=== PATIENT | female | born 1975 | race Caucasian/White ===

== ENCOUNTER 2022-04-18 08:46 | Outpatient (CLI) | payer OTHER, SELFPAY ==
[2022-04-18 09:52] LABS: Cholesterol* 180 mg/dL (90-199)
[2022-04-18 09:53] LABS: Glucose* 102 mg/dL (60-115); HDL Cholesterol* 67 mg/dL (>=50); LDL Cholesterol Calculated 94 mg/dL (<100); Triglycerides* 93 mg/dL (40-149)
[2022-04-18 10:21] LABS: Vitamin D 25 Hydroxy* 58 ng/mL (30-80)
== END 2022-04-18 08:47 | disposition home or self-care (01) ==
LOC: NFLDREF 08:46
PROVIDERS: PCP Family Medicine; Visit Provider Obstetrics & Gynecology
DX: Z01.419 Encounter for gynecological examination (general) (routine) without abnormal findings (principal); Z13.6 Encounter for screening for cardiovascular disorders; Z13.1 Encounter for screening for diabetes mellitus; Z13.29 Encounter for screening for other suspected endocrine disorder
CPT/HCPCS: 80061; 82306; 82947; 84443

== ENCOUNTER 2022-05-06 13:08 | Outpatient (CLI) | payer OTHER, SELFPAY ==
--- NOTE | 2022-05-06 13:20 | CRLHL7_ITS ---
For Patients: As a result of the Century Cures Act, medical imaging exams and procedure reports are released immediately into your electronic medical record. You may view this report before your referring provider. If you have questions, please contact your health care provider. BILATERAL SCREENING MAMMOGRAM WITH COMPUTER-AIDED DETECTION TECHNIQUE: CC and MLO views were obtained. These mammographic images have been obtained using full-field digital technique. These mammographic images were interpreted with the benefit of computer-aided detection. COMPARISON FILM: 02/01/20, 05/07/16. FINDINGS: There are scattered areas of fibroglandular density IMPRESSION: There is no radiographic evidence for malignancy. ASSESSMENT: BI-RADS Category 1: Negative RECOMMENDATION: Routine screening mammogram in 1 year. A lay language report of this examination will be provided to the patient. Erwin Brothers M.D. Diagnostic Radiologist [email or web address] JACKELYN/Dictated by: Erwin Brothers MD @ 05/15/2022 11:23:00 AM (Electronically Signed)
== END 2022-05-06 13:09 | disposition home or self-care (01) ==
LOC: MAMMO 13:09
PROVIDERS: PCP Family Medicine; Visit Provider Family Medicine
DX: Z12.31 Encounter for screening mammogram for malignant neoplasm of breast (principal)
CPT/HCPCS: 77063; 77067

== ENCOUNTER 2023-05-12 10:03 | Outpatient (CLI) | payer OTHER, SELFPAY | END 2023-05-12 10:04 | disposition home or self-care (01) | PROVIDERS: PCP Family Medicine; Visit Provider Family Medicine | DX: Z00.00 Encounter for general adult medical examination without abnormal findings (principal); E78.5 Hyperlipidemia, unspecified | CPT/HCPCS: 80048; 80061; 84460 ==

== ENCOUNTER 2023-05-19 13:30 | Outpatient (CLI) | payer OTHER, SELFPAY ==
--- NOTE | 2023-05-19 13:40 | CRLHL7_ITS ---
For Patients: As a result of the Century Cures Act, medical imaging exams and procedure reports are released immediately into your electronic medical record. You may view this report before your referring provider. If you have questions, please contact your health care provider. BILATERAL SCREENING MAMMOGRAM WITH COMPUTER-AIDED DETECTION TECHNIQUE: CC and MLO views were obtained. These mammographic images have been obtained using full-field digital technique. These mammographic images were interpreted with the benefit of computer-aided detection. COMPARISON FILM: 05/06/22, 02/01/20. FINDINGS: There are scattered areas of fibroglandular density IMPRESSION: There is no radiographic evidence for malignancy. ASSESSMENT: BI-RADS Category 1: Negative RECOMMENDATION: Routine screening mammogram in 1 year. A lay language report of this examination will be provided to the patient. Erwin Brothers M.D. Diagnostic Radiologist [email or web address] JESSICA/tash Transcribed: 6:27 p.mRenetta bianchi/Dictated by: Erwin Brothers MD @ 05/20/2023 1:30:00 PM (Electronically Signed)
== END 2023-05-19 13:31 | disposition home or self-care (01) ==
PROVIDERS: PCP Family Medicine; Visit Provider Obstetrics & Gynecology
DX: Z12.31 Encounter for screening mammogram for malignant neoplasm of breast (principal)
CPT/HCPCS: 77067

== ENCOUNTER 2023-07-17 10:41 | Outpatient (CLI) | payer OTHER, SELFPAY | END 2023-07-17 10:42 | disposition home or self-care (01) | LOC: NFLDREF 10:41 | PROVIDERS: PCP Family Medicine; Visit Provider Family Medicine | DX: Z13.228 Encounter for screening for other metabolic disorders (principal); Z83.3 Family history of diabetes mellitus | CPT/HCPCS: 80048 ==

== ENCOUNTER 2023-07-28 07:44 | Day surgery (SDC) | payer OTHER, SELFPAY ==
[2023-07-28] VITALS (13 sets, daily range): BP systolic 97–151; BP diastolic 61–91; PULSE 50–71; RESP 16–116; TEMP 36.2–36.6; O2SAT 93–100; BMI 29.9
--- OUTSIDE RECORDS SUMMARY | 2023-07-28 07:48 | XMS_ITS | Clinical Summary ---
Author Name Unknown Organization [facility] Address [address] [place] [address] Care Team Providers Care Patent Examiner Name Role Phone Dimitry Zuniga MD Primary Care Provider Sophie severino Source Comments You are receiving this document as you are listed as the primary care provider,follow-up provider, or the patient has been referred to you for consultation.This is in compliance with the Medicare and[facility] EHR Incentive Program,which states Providers who transition their patient to another setting of careor provider of care or refers their patient to another provider of care shouldprovide summary care record for each transition of care or referral. [facility] Allergies No known active allergies Medications Medication Sig Dispensed Refills Start Date End Date Status FLUoxetine (PROZAC) 10 MG capsule Take 10 mg by mouth daily. 0 Active simvastatin (ZOCOR) 20 MG tablet Take 20 mg by mouth daily at bedtime. 0 Active MULTIPLE VITAMIN OR Take 1 Tab by mouth daily. 0 Active valACYclovir (VALTREX) 500 MG tablet Take 500 mg by mouth daily. 0 Active methylPREDNISolone (MEDROL 21 TABLET DOSEPACK) 4 MG tablet Take as directed on package 21 Tablet 0 05/14/2021 Active Active Problems Problem Noted Date Diagnosed Date Nontoxic uninodular goiter 11/19/2002 Overview: Nodule Thyroid Social History Tobacco Use Types Packs/Day Years Used Date Smoking Tobacco: Never Smokeless Tobacco: Never Sex and Gender Information Value Date Recorded Sex Assigned at Not on file Gender Identity Not on file Sexual Orientation Not on file Plan of Treatment Health Maintenance Due Date Last Done Comments Colon Cancer Screening Plan Due 1974 Hep C Screening (Preventive Services) 1974 HepB (1) 1974 HIV Screening (Preventive Services) 1990 Adult Preventive Visit 1992 Cervical Cancer Screening Due 11/07/1998 11/06/1998 Cholesterol 10/14/2019 11/06/1998 COVID-19 Vaccine (3 - 2022- season) 2023 10/02/2020, 09/04/2020 Influenza (#1) 2023 03/15/2021, 03/16, 04/06/2018, Additional history exists Zoster/Shingles (1 of 2) 2024 DTaP/Tdap/Td (3 - Tdap) 04/09/2030 04/09/2020, 09/27 HepA Aged Out No longer eligi ble based on patient's age to complete this topic Hib Aged Out No longer eligi ble based on patient's age to complete this topic IPV (Polio) Aged Out No longer eligi ble based on patient's age to complete this topic MCV4 Aged Out No longer eligi ble based on patient's age to complete this topic Pneumococcal Aged Out No longer eligi ble based on patient's age to complete this topic Care Teams Patent Examiner Relationship Specialty Start Date End Date Dimitry Zuniga MD PCP - General 09/14/10
--- OUTSIDE RECORDS SUMMARY | 2023-07-28 07:48 | XMS_ITS | Clinical Summary ---
Author Name Unknown Organization [facility] Address [place], [place] [address] Care Team Providers Care Ampoule Inspector Name Role Phone Unavailable Primary Care Provider Unavailabl e Allergies No known active allergies Medications Medication Sig Dispensed Refills Start Date End Date Status albuterol HFA (PROAIR HFA) 90 mcg/actuation inhalerIndications:Co ugh Inhale 1-2 Puffs by mouth every 6 hours if needed. 1 Inhaler 0 03/15/2019 Active azithromycin (ZITHROMAX Z-DARELL) 250 mg tabletIndications:Per sistent cough Take 500 mg (2 tabs) by mouth on day 1, then 250 mg (1 tab) daily for days 2-5. 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, acquired Nasal septal deviation Hypertrophy of both inferior nasal turbinates Chronic sinusitis Resolved Problems Problem Noted Date Diagnosed Date Resolved Date Acute posthemorrhagic anemia 02/13/2005 05/25/2012 Unspecified antepartum hemorrhage, antepartum 02/13/20 05 05/25/2012 Fetus or affected by delivery 02/12/2005 05/25/2012 Immunizations Name Administration Dates Next Due AMB Influenza, IIV4 PF (=>6 mos Flulaval,Fluzone Fluarix)(Flu Clinic Only) 04/06/2018 Influenza, IIV3 (Age >=3 years) 03/20/2009,05/12 Influenza, IIV4 03/13/2017,05/20/2016,05/24/2014 MMR 10/02/1991 Tdap 09/27/2008 Family History Medical History Relation Name Comments Arthritis Brother Rheumatoid arth ritis Hyperlipidemia Father Hypertension Father Other Father Gout Psychiatric illness Maternal Grandfather Bipolar Disorder, committed suicide Psychiatric illness Maternal Grandmother Bipolar Disorder, committed suicide Hyperlipidemia Mother Psychiatric illness Mother Bipolar Disorder Psychiatric illness Sister Depressi on Anesthesia Problem No Family History Blood Disease No Family History Cancer-breast No Family History Relation Name Status Comments Brother Father Maternal Grandfather Maternal Grandmother Mother Sister Social History Tobacco Use Types Packs/Day Years Used Date Smoking Tobacco: Never Smokeless Tobacco: Never Tobacco Cessation:Counseling Given: Yes Alcohol Use Standard Drinks/Week Comments Yes 0 (1 standard drink = 0.6 oz pur e alcohol) occasional Sex and Gender Information Value Date Recorded Sex Assigned at Not on file Gender Identity Not on file Sexual Orientation Not on file Obstetrics History Last Filed Vital Signs Vital Sign Reading Time Taken Comments Blood Pressure 122/82 03/15/2019 10:12 AM CDT Pulse 76 03/15/2019 10:12 AM CDT Temperature 37.8 ??C (100.1 ??F) 03/15/2019 10:12 AM CDT Respiratory Rate 16 09/30/2018 8:50 AM CDT Oxygen Saturation 98% 03/15/2019 10:12 AM CDT Inhaled Oxygen Concentration - - Weight 82.6 kg (182 lb) 03/15/2019 10:12 AM CDT Height 162.6 cm (5' 4.02) 09/30/2018 8:50 AM CD T Body Mass Index 31.22 09/30/2018 8:50 AM CDT Plan of Treatment Health Maintenance Due Date Last Done Comments COVID-19 vaccine series (#1) 04/15/1975 HIV for age 15-65 1989 Hepatitis C screening for age 18-79 1992 Depression screening for age 12+ 05/05/2018 05/05/2017, 01/07/2017, 01/10/2016, Additional history exists Tetanus booster 09/27/2018 09/27/2008 (Comp leted outside of [facility]), 09/27/2008 BMI (ht and wt on same day) for age 18+ 10/01/2019 09/30/2018, 08/19/2018, 02/19/2018, Additional history exists Colonoscopy through age 75 10/14/2019 Mammogram for age 45-75 01/31/2021 02/01/20 20, 05/14/2016, 05/07/2016, Additional history exists Lipids for age 45-75 05/05/2022 05/05/2017, 01/10/2016, 10/31/2014, Additional history exists Influenza for age 9-49 02/13/2023 8, 03/13/2017, 05/20/2016, Additional history exists Pap test for age 21-65 04/09/2023 0, 04/09/2020, 07/19/2013, Additional history exists Tdap Completed 09/27/2008 Pneumococcal series for age 6-64 Aged Out No longer eligible based on patient's age to complete this topic Advance Directives Latest Code Status on File Code Status Date Activated Date Inactivated Comments Full Code 02/23/2018 6:10 AM 02/23/2018 4:29 PM Code Status History Code Status Date Activated Date Inactivated Comments Full Code 02/12/2005 8:47 AM 02/12/2005 2:14 PM
[2023-07-28 07:56] LABS: Ur HCG Qualitative* Negative (Negative)
[2023-07-28] MEDS: LACTATED RINGERS 1000 ML 1,000 ML 100 ML IV ×2 (08:20→10:43)
[2023-07-28] MEDS: SODIUM CHLORIDE 0.9 % (FLUSH) 10 ML SYRINGE IVF (08:20)
--- NOTE | 2023-07-28 09:30 | SUR.OPER ---
PATIENT QUESTIONS ANSWERED SATISFACTORILY PREOPERATIVELY. PATIENT BROUGHT TO OR #2 PER CART. Patient positioned supine on OR #4 bed for the intubation. Pt. then moved into the lithotomy position for the procedure. C.A. padded and tucked the arms at pt. side in a neutral position. ? Final approval of positioning by surgeon.
[2023-07-28] MEDS: BUPIVACAINE 0.25% 30 ML INJECTION (10:14)
--- NOTE | 2023-07-28 11:23 | W.PM.GYNPROC ---
Procedure Note Date of procedure: 07/28/23 Pre-op diagnosis: Menorrhagia, unsuccessful Mirena IUD replacement Post-op diagnosis: same (plus pelvic and intra-abdominal adhesions) Procedure: 1. Hysteroscopy. 2. Polypectomy. 3. Planned Cassy endometrial ablation, unsuccessful. 4. Laparoscopic bilateral salpingectomies and lysis of adhesions. Anesthesia: GETA Complications: None. Surgeon: Margaret Lipscomb MD Estimated blood loss (mL): 10 Pathology: specimen obtained, sent to pathology (1. Endometrial polyps, 2. Bilateral fallopian tubes) Condition: stable Disposition: same day Findings: Anterior cervix, severely anteverted uterus. Polypoid endometrial tissue noted on hysteroscopy. Laparoscopic findings: Extensive omental adhesions to anterior abdominal wall in the midline, uterus adherent to anterior abdominal from fundus to cervix, normal right fallopian tube and ovary, adhesions between sigmoid colon epiploic fat and left pelvic sidewall, ovary and left fallopian tube, otherwise normal left fallopian tube and ovary. Procedure Description: After obtaining informed consent, the patient was taken to the operating room where general anesthesia was obtained without difficulty. She was prepared and draped in the normal sterile fashion, in the low dorsal lithotomy position. A Huggins catheter was placed into the bladder left to gravity drainage. An open-sided bivalve speculum was introduced into the vagina and the cervix visualized with some difficulty, as it was extremely anterior in position. The anterior lip of the cervix was grasped with a single-tooth tenaculum for traction. The cervical opening was slightly stenotic. An os finder was used to slightly dilate the cervix and determine the angle of the endocervical canal, which was almost vertical anteriorly. Hegar dilators were used to determine cervical length, which was 4.5 cm, and then to gently dilate the cervix. The uterus was gently sounded. Sound length was 8 cm. The cervix was gently dilated to a #6 Hegar dilator. I was unable to dilate the cervix further. During the dilation attempts, the anterior lip of the cervix tore slightly from the tenaculum, and an Allis clamp was placed as an alternative. A hysteroscope was then advanced under direct visualization through the cervix into the uterine cavity. Sterile normal saline was used as distending medium. The uterine cavity was carefully inspected with the findings noted above. Pictures were taken for documentation purposes. The TruClear morcellator was inserted through the operating channel in the hysteroscope. The morcellator was used to remove the polypoid tissue in its entirety. The hysteroscope was then removed. Because I could not dilate the cervix further to accommodate the Cassy device, I was unable to proceed with endometrial ablation as planned. A Kaeuferportal uterine manipulator was placed without difficulty. The Allis clamp and speculum were removed. I then changed gown and gloves and my attention was turned to the abdomen. The inferior aspect of the umbilical fold was injected with 0.25% Marcaine plain. A 5 mm vertical incision was then made within the umbilical fold using a scalpel along a previous scar. The subcutaneous tissues were bluntly dissected with a Amy clamp to the fascia. The fascia was grasped with 2 small Franki clamps and elevated. The fascia was incised with Huber scissors. The underlying peritoneum was grasped with two Amy clamps, incised sharply with scissors. A 5 mm laparoscopic port was then inserted through the defect into the abdomen. The trocar was removed leaving the sleeve in place. The CO2 gas flow was turned to high flow to achieve pneumoperitoneum. The 5 mm laparoscope was used then to carefully inspect the abdomen and pelvis with findings noted above. Pictures were taken for documentation purposes. The patient was placed in Trendelenburg positioning. Two additional 5 mm ports were placed under direct visualization in the right lower quadrant and in the right abdomen lateral to the umbilicus after first anesthetizing the skin and fascia with 0.25% Marcaine plain. The uterus could not be elevated using the uterine manipulator, as the uterus was fixed in place with adhesions to the anterior abdominal wall. The manipulator was only able to move the cervix. The bowels were gently pushed from the pelvis cephalad. The right fallopian tube was most easily visualized and accessible. The tube was elevated with a graspers, and the LigaSure device was used to excise the tube from distal at its ovarian attachment to proximal at the uterine cornua. The tube was removed through the right lower quadrant port. The left fallopian tube could only be visualized along the proximal 1/2, due to inability to manipulate the scope around the omental adhesions and due to adhesions involving the distal fallopian tube, ovary, and sigmoid epiploic fat. The decision was made at this time to proceed with adhesiolysis. The LigaSure device was used to take down all of the omental adhesions along the anterior abdominal wall. Excellent hemostasis was visualized. A laparoscopic Metzenbaum scissors was used to lyse filmy adhesions between the sigmoid colon epiploic fat and the left pelvic sidewall. Adhesions between the ovary and sigmoid were taken down sharply and with the LigaSure where it could be done safely without fear of thermal injury to the sigmoid. N/C adhesions were taken down, left fallopian tube could be elevated with a graspers. It was dissected using the LigaSure device also from distal to proximal, and the tube was removed through one of the 5 mm ports. There was a small amount of fimbria which was still noted to be attached to the ovary, which was grasped separately and excised with the LigaSure. It was removed through a 5 mm port and sent with the ovary. The abdomen pelvis were then copiously irrigated and inspected for hemostasis. Hemostasis was observed. All instruments were then removed under direct visualization. Pneumoperitoneum was allowed to escape. The skin at all 3 port sites was closed in a subcuticular fashion with 4-0 Vicryl. Surgical glue was then placed over the incisions. The uterine manipulator and Huggins catheter were removed. The speculum was reinserted into the vagina and the cervix visualized. There was little bit of active bleeding noted where the anterior lip of the cervix had been torn by the tenaculum. This was reapproximated with two interrupted sutures of 3-0 chromic. Hemostasis was visualized. The speculum was removed. The patient tolerated the procedure well. Sponge, lap, and needle counts were correct x2. The patient was taken to the recovery room awake and in stable condition. At the conclusion of the procedure. She received 30 mg of IV Toradol
[2023-07-28] MEDS: HYDROmorphone 0.5 mg/0.5 ml inj IVP (11:32)
--- NOTE | 2023-07-28 11:39 | W.ANESCHARGE ---
Anesthesia Charges Start Date/Time Anesthesia Start Date: 07/28/23 Anesthesia Start Time: 08:57 Stop Date/Time Anesthesia Stop Date: 07/28/23 Anesthesia Stop Time: 11:23
[2023-07-28] MEDS: fentaNYL 100 MCG/2 ML inj 50 MCG IVP (11:41)
[2023-07-28] MEDS: OXYCODONE 5 MG TABLET PO (12:43)
--- NOTE | 2023-07-28 13:18 | W.ANESCHARGE ---
Anesthesia Charges Start Date/Time Anesthesia Start Date: 07/28/23 Anesthesia Start Time: 08:57 Stop Date/Time Anesthesia Stop Date: 07/28/23 Anesthesia Stop Time: 11:23
== END 2023-07-28 13:05 | disposition home or self-care (01) ==
PROVIDERS: PCP Family Medicine; Visit Provider Obstetrics & Gynecology
PROC: (CPT 58661; principal; 2023-07-28 09:00)
DX: N92.0 Excessive and frequent menstruation with regular cycle (principal); N73.6 Female pelvic peritoneal adhesions (postinfective); N84.0 Polyp of corpus uteri
CPT/HCPCS: 58558; 58661; 00840; 00851; 81025; 88302; 88305; A9270; J0330; J0665; J1100; J1170; J1885; J2250; J2371; J2405; J2704; J3010; J3490; J7120

== ENCOUNTER 2024-11-02 14:16 | Outpatient (CLI) | payer OTHER, SELFPAY ==
--- NOTE | 2024-11-02 14:40 | CRLHL7_ITS ---
For Patients: As a result of the Century Cures Act, medical imaging exams and procedure reports are released immediately into your electronic medical record. You may view this report before your referring provider. If you have questions, please contact your health care provider. INDICATION: BILATERAL SCREENING MAMMOGRAM, ASYMPTOMATIC 49 Y/O FEMALE COMPARISON: 05/19/2023, 05/06/2022, 02/01/2020 TECHNIQUE: Digital mammogram in CC and MLO projections including computer-aided detection (CAD) and tomosynthesis. BREAST COMPOSITION: There are scattered areas of fibroglandular density. FINDINGS: No suspicious findings. ASSESSMENT: BI-RADS 2 Benign RECOMMENDATION: Annual screening mammogram. A lay language report of this examination will be provided to the patient. Dictated by: Erwin Brothers MD @ 11/03/2024 09:29:37 (Electronically Signed)
== END 2024-11-02 14:17 | disposition home or self-care (01) ==
PROVIDERS: PCP Family Medicine; Visit Provider Family Medicine
DX: Z12.31 Encounter for screening mammogram for malignant neoplasm of breast (principal)
CPT/HCPCS: 77063; 77067

== ENCOUNTER 2024-11-21 09:15 | Outpatient (CLI) | payer OTHER, SELFPAY | END 2024-11-21 09:16 | disposition home or self-care (01) | PROVIDERS: PCP Family Medicine; Visit Provider Family Medicine | DX: E78.2 Mixed hyperlipidemia (principal); N94.6 Dysmenorrhea, unspecified; L65.9 Nonscarring hair loss, unspecified | CPT/HCPCS: 80048; 80061; 84443; 85025 ==

== ENCOUNTER 2024-12-12 11:06 | Outpatient (CLI) | payer OTHER, SELFPAY ==
[2024-12-13 18:00] LABS: HPV Source Cervix; HPV, High Risk by TMA Not Detected
== END 2024-12-12 11:07 | disposition home or self-care (01) ==
PROVIDERS: PCP Family Medicine; Visit Provider Obstetrics & Gynecology
DX: Z12.4 Encounter for screening for malignant neoplasm of cervix (principal); Z11.51 Encounter for screening for human papillomavirus (HPV)
CPT/HCPCS: 87624; 87625; 88141; 88142